=== PATIENT | female | born 1955 | race Caucasian/White ===

== ENCOUNTER → 2022-02-13 | Outpatient (CLI) | payer BC ==
[~2022-02-13] MED LIST: MULTIPLE VITAMI1 CAP PO; NORCO 325 MG-51 TA1 PO; SYNTHROID0.05 MG PO
[2022-02-13 14:34] LABS: BASO # 0.02 K/mm3 (0.02-0.10); HEMATOCRIT 40.3 % (37.0-47.0); HEMOGLOBIN 13.1 g/dL (12.5-16.0); LYMPH# 1.57 K/mm3 (1.50-4.00); MEAN CELL VOLUME 88 fl (78-100); MEAN CORPUSCULAR HEMOGLOBIN 29 pg (27-31); MEAN CORPUSCULAR HGB CONC 33 g/dL (33-37); MONO # 0.54 K/mm3 (0.20-0.80); NEU # 2.79 K/mm3 (1.40-6.50); PLATELET COUNT 364 K/mm3 (130-400); RED BLOOD COUNT 4.56 M/mm3 (4.10-5.30); RED CELL DISTRIBUTION WIDTH 13.3 % (11.5-14.5)
[2022-02-13 14:40] LABS: ALBUMIN 4.6 g/dL (3.4-4.8); POTASSIUM 3.8 mmol/L (3.5-5.1)
[2022-02-13 14:41] LABS: CALCIUM 9.5 mg/dL (8.3-10.5)
[2022-02-13 14:44] LABS: TOTAL BILIRUBIN 0.2 mg/dL (0.2-1.2)
[2022-02-14 15:24] LABS: ANA SCREEN with REFLEX Negative (Negative)
== END ==
LOC: LAB 14:14
PROVIDERS: Physician Assistant
DX: Z00.00 Encounter for general adult medical examination without abnormal findings (principal); Z23 Encounter for immunization; Z13.1 Encounter for screening for diabetes mellitus; E78.5 Hyperlipidemia, unspecified; E03.9 Hypothyroidism, unspecified; N30.10 Interstitial cystitis (chronic) without hematuria; K58.9 Irritable bowel syndrome, unspecified; K90.9 Intestinal malabsorption, unspecified; H61.21 Impacted cerumen, right ear; M25.50 Pain in unspecified joint; M41.86 Other forms of scoliosis, lumbar region; M51.36 Other intervertebral disc degeneration, lumbar region; M50.31 Other cervical disc degeneration, high cervical region

== ENCOUNTER → 2022-04-29 | Outpatient (CLI) | payer BC | LOC: LAB 12:00 | DX: B34.9 Viral infection, unspecified (principal); Z20.822 Contact with and (suspected) exposure to COVID-19 ==

== ENCOUNTER 2022-11-05 08:00 | Outpatient (RCR) | payer MEDICARE | END 2022-12-05 | disposition home or self-care (01) | LOC: PT | DX: M51.36 Other intervertebral disc degeneration, lumbar region (principal) ==

== ENCOUNTER → 2023-01-16 | Outpatient (CLI) | payer MEDICARE ==
[2023-01-16 10:14] LABS: BASO # 0.02 K/mm3 (0.02-0.10); EOS # 0.08 K/mm3 (0.04-0.40); EOS % 2.3 % (1.0-5.0); HEMATOCRIT 39.6 % (37.0-47.0); HEMOGLOBIN 12.6 g/dL (12.5-16.0); LYMPH# 0.96 K/mm3 (1.50-4.00); MEAN CELL VOLUME 90 fl (78-100); MEAN CORPUSCULAR HEMOGLOBIN 29 pg (27-31); MEAN CORPUSCULAR HGB CONC 32 g/dL (33-37); MEAN PLATELET VOLUME 9.4 fl (7.4-10.4); MONO # 0.43 K/mm3 (0.20-0.80); NEU # 2.01 K/mm3 (1.40-6.50); PLATELET COUNT 295 K/mm3 (130-400); RED BLOOD COUNT 4.38 M/mm3 (4.10-5.30); RED CELL DISTRIBUTION WIDTH 13.7 % (11.5-14.5); WHITE BLOOD COUNT 3.5 K/mm3 (4.8-10.8)
[2023-01-16 10:45] LABS: POTASSIUM 4.6 mmol/L (3.5-5.1)
[2023-01-16 10:46] LABS: ALBUMIN 4.1 g/dL (3.4-4.8)
[2023-01-16 10:47] LABS: CALCIUM 9.5 mg/dL (8.3-10.5)
[2023-01-16 10:48] LABS: TOTAL PROTEIN 6.7 g/dL (6.2-8.1)
[2023-01-16 10:50] LABS: TOTAL BILIRUBIN 0.3 mg/dL (0.2-1.2)
== END ==
LOC: LAB 09:41
PROVIDERS: Physician Assistant
DX: Z00.00 Encounter for general adult medical examination without abnormal findings (principal); Z13.1 Encounter for screening for diabetes mellitus; N30.10 Interstitial cystitis (chronic) without hematuria; M50.30 Other cervical disc degeneration, unspecified cervical region; M51.36 Other intervertebral disc degeneration, lumbar region; E78.5 Hyperlipidemia, unspecified; E03.9 Hypothyroidism, unspecified; K58.9 Irritable bowel syndrome, unspecified; M25.50 Pain in unspecified joint; E55.9 Vitamin D deficiency, unspecified; K90.9 Intestinal malabsorption, unspecified

== ENCOUNTER → 2024-02-06 | Outpatient (CLI) | payer MEDICARE ==
[2024-02-06 11:36] LABS: BASO # 0.02 K/mm3 (0.02-0.10); EOS # 0.09 K/mm3 (0.04-0.40); EOS % 2.4 % (1.0-5.0); HEMATOCRIT 42.4 % (37.0-47.0); HEMOGLOBIN 13.7 g/dL (12.5-16.0); LYMPH# 0.96 K/mm3 (1.50-4.00); MEAN CELL VOLUME 90 fl (78-100); MEAN CORPUSCULAR HEMOGLOBIN 29 pg (27-31); MEAN CORPUSCULAR HGB CONC 32 g/dL (33-37); MEAN PLATELET VOLUME 9.1 fl (7.4-10.4); MONO # 0.51 K/mm3 (0.20-0.80); NEU # 2.18 K/mm3 (1.40-6.50); PLATELET COUNT 308 K/mm3 (130-400); RED BLOOD COUNT 4.74 M/mm3 (4.10-5.30); RED CELL DISTRIBUTION WIDTH 13.7 % (11.5-14.5); WHITE BLOOD COUNT 3.8 K/mm3 (4.8-10.8)
[2024-02-06 11:43] LABS: ALBUMIN 4.4 g/dL (3.4-4.8)
[2024-02-06 11:44] LABS: CALCIUM 9.5 mg/dL (8.3-10.5)
[2024-02-06 11:46] LABS: TOTAL PROTEIN 7.2 g/dL (6.2-8.1)
[2024-02-06 11:48] LABS: TOTAL BILIRUBIN 0.3 mg/dL (0.2-1.2)
== END ==
LOC: LAB 11:19
PROVIDERS: Physician Assistant
DX: Z13.1 Encounter for screening for diabetes mellitus (principal); Z11.59 Encounter for screening for other viral diseases; E78.5 Hyperlipidemia, unspecified; E03.9 Hypothyroidism, unspecified; K90.9 Intestinal malabsorption, unspecified

== ENCOUNTER → 2024-02-24 | Outpatient (CLI) | payer MEDICARE | LOC: RAD 09:06 | DX: M19.041 Primary osteoarthritis, right hand (principal); M16.0 Bilateral primary osteoarthritis of hip ==

== ENCOUNTER → 2024-05-03 | Outpatient (CLI) | payer MEDICARE | LOC: RAD 08:56 → MAMMO 09:00 | DX: Z13.820 Encounter for screening for osteoporosis (principal) ==